=== PATIENT | male | born 1990 | race African-American/Black ===

== ENCOUNTER 2020-01-30 18:05 | Emergency (ER) | payer MEDICAID ==
[~2020-01-30] VITALS: Ht 167.6 cm; Wt 73.0 kg
[2020-01-30 19:44] VITALS: BP 139/86
== END 2020-01-30 19:46 | disposition home or self-care (01) ==
LOC: ER 18:05
DX: S00.31XA Abrasion of nose, initial encounter (principal); Z87.820 Personal history of traumatic brain injury; Z98.2 Presence of cerebrospinal fluid drainage device; W01.0XXA Fall on same level from slipping, tripping and stumbling without subsequent striking against object, initial encounter; Z91.81 History of falling; Y93.89 Activity, other specified; Y92.018 Other place in single-family (private) house as the place of occurrence of the external cause
CPT/HCPCS: 93005; 99283

== ENCOUNTER 2020-04-23 16:14 | Emergency (ER) | payer MEDICAID ==
[~2020-04-23] VITALS: Ht 152.4 cm; Wt 68.0 kg
[2020-04-23 16:15] VITALS: BP 121/76
[2020-04-23] MEDS ORDERED: TETANUS, DIPHTHERIA, PERTUSSIS VAC/PF 0.5ML (>7YR OLD) IM ONE (17:30)
== END 2020-04-23 19:03 | disposition home or self-care (01) ==
LOC: ER 16:14
DX: S50.311A Abrasion of right elbow, initial encounter (principal); S60.811A Abrasion of right wrist, initial encounter; Z87.820 Personal history of traumatic brain injury; Z98.2 Presence of cerebrospinal fluid drainage device; W10.8XXA Fall (on) (from) other stairs and steps, initial encounter; Y93.01 Activity, walking, marching and hiking; Y92.89 Other specified places as the place of occurrence of the external cause; Y99.8 Other external cause status
CPT/HCPCS: 73080; 73110; 90715; 99284

== ENCOUNTER 2020-12-22 14:08 | Emergency (ER) | payer MEDICAID ==
[~2020-12-22] VITALS: Ht 149.9 cm; Wt 70.0 kg
[2020-12-22 18:35] VITALS: BP 118/74
== END 2020-12-22 18:35 | disposition home or self-care (01) ==
LOC: ER 14:08
DX: S01.91XA Laceration without foreign body of unspecified part of head, initial encounter (principal); Z98.890 Other specified postprocedural states; W05.0XXA Fall from non-moving wheelchair, initial encounter; Y93.89 Activity, other specified; Y92.89 Other specified places as the place of occurrence of the external cause; Y99.8 Other external cause status
CPT/HCPCS: 99281

== ENCOUNTER 2021-12-11 01:07 | Emergency (ER) | payer MEDICAID ==
[~2021-12-11] VITALS: Ht 149.9 cm; Wt 66.0 kg
[2021-12-11 01:52] VITALS: BP 133/82
[2021-12-11] MEDS ORDERED: IBUP-2458 MT (02:45)
[2021-12-11] MEDS ORDERED: KEFLL21 MT (02:45)
== END 2021-12-11 03:08 | disposition home or self-care (01) ==
LOC: ER 01:07
DX: L03.114 Cellulitis of left upper limb (principal); F84.0 Autistic disorder; H54.7 Unspecified visual loss; Z87.820 Personal history of traumatic brain injury; Z98.890 Other specified postprocedural states
CPT/HCPCS: 99283

== ENCOUNTER 2022-12-15 18:35 | Emergency (ER) | payer MEDICAID ==
[~2022-12-15] VITALS: Ht 147.3 cm; Wt 69.0 kg
[~2022-12-15 18:35] MED LIST: IBUP-2458 MT; KEFLL21 MT
[2022-12-15 18:37] VITALS: BP 168/108; PULSE 83; RESP 16; TEMP 98.6; O2SAT 98
[2022-12-15] MEDS ORDERED: IBUPROFEN 600MG TABLET PO ONE (19:45)
== END 2022-12-15 21:51 | disposition home or self-care (01) ==
LOC: ER 20:46
DX: M25.522 Pain in left elbow (principal); Z98.890 Other specified postprocedural states
CPT/HCPCS: 73080; 73090; 73130; 99284; A4565

== ENCOUNTER 2023-01-05 16:17 | Emergency (ER) | payer MEDICAID ==
[~2023-01-05] VITALS: Ht 160 cm; Wt 64.0 kg
[2023-01-05 16:26] VITALS: O2SAT 97
[2023-01-05] MEDS ORDERED: BACITRACIN ZINC OINT UDPKT TOP ONE (17:30)
[2023-01-05] MEDS ORDERED: IBUPROFEN 100MG/5ML UDC PO ONE (17:30)
[2023-01-05] MEDS: IBUPROFEN 100MG/5ML UDC PO NR ×2 (20:29→21:40)
[2023-01-05] MEDS ORDERED: BACITRACIN ZINC OINT UDPKT TOP NR (20:30)
[2023-01-05 22:01] VITALS: BP 149/82; PULSE 60; RESP 20; TEMP 98.2
== END 2023-01-05 22:04 | disposition home or self-care (01) ==
LOC: ER 16:17
DX: S50.02XA Contusion of left elbow, initial encounter (principal); S50.312A Abrasion of left elbow, initial encounter; W18.39XA Other fall on same level, initial encounter; Y93.89 Activity, other specified; Y92.89 Other specified places as the place of occurrence of the external cause; Y99.8 Other external cause status
CPT/HCPCS: 73060; 73080; 73090; 99284